=== PATIENT | female | born 1995 | race African-American/Black ===

== ENCOUNTER 2017-04-01 09:08 | Emergency (ER) | payer OTHER | END 2017-04-01 10:08 | disposition home or self-care (01) | LOC: CED 09:08 → CFTX 09:08 | DX: J20.9 Acute bronchitis, unspecified (principal); J02.9 Acute pharyngitis, unspecified; G40.909 Epilepsy, unspecified, not intractable, without status epilepticus; F17.200 Nicotine dependence, unspecified, uncomplicated | CPT/HCPCS: 87651; 99282 ==